=== PATIENT | female | born 1965 | race Caucasian/White ===

== ENCOUNTER → 2018-07-24 14:14 | Outpatient (CLI) | payer OTHER, SELFPAY ==
[2018-07-24 16:36] LABS: CPK Total, Creatine Kinase 104 U/L (26-192)
[2018-07-28 09:44] LABS: ANTINUCLEAR ANTIBODIES DIRECT Negative (Negative); Aldolase 3.3 U/L (3.3-10.3)
== END ==
PROVIDERS: Family Provider Family Medicine; PCP Family Medicine; Visit Provider Family Medicine
DX: M79.10 Myalgia, unspecified site (principal)
CPT/HCPCS: 36415; 82085; 82550; 86038; 86225; 86235

== ENCOUNTER → 2018-07-31 09:56 | Outpatient (CLI) | payer OTHER, SELFPAY ==
--- NOTE | 2018-07-31 10:02 | ART_ITS ---
Reason For Study: BLE pain/weakness Left Segmental Pressures Left brachial= 127mmHg. Left posterior tibial artery = 153mmHg. Left dorsalis pedis artery = 148mmHg. The left dorsalis pedis waveforms are triphasic. The left posterior tibial artery waveforms are triphasic. Right Segmental Pressures Right brachial= 126mmHg. Right posterior tibial artery = 158mmHg. Right dorsalis pedis artery = 146mmHg. The right dorsalis pedis waveforms are triphasic. The right posterior tibial artery waveforms are triphasic. Indices The right ankle brachial index by the dorsalis pedis is 1.2. The right ankle brachial index by the posterior tibial artery is 1.2. The left ankle brachial index by the dorsalis pedis is 1.2. The left ankle brachial index by the posterior tibial artery is 1.2. Interpretation Summary Triphasic waveforms are noted at ankle level bilaterally. Resting ankle-brachial indices appear bilaterally normal. There is no evidence of significant arterial occlusive disease. Ordering Physician: Kely Lynch Referring Physician: Kely Lynch Performed By: Montserrat Noriega [facility]
--- OUTSIDE RECORDS SUMMARY | 2018-09-16 00:23 | XMS RPT_ITS ---
:1965 Author Organization OHIP Support Name Relationship Address Phone SAMIRA BEATTYIN Unavailable [address] + [place] [address] SIERS, HENRIETTA Unavailable [address] + [place] [address] SIERS, HENRIETTA Unavailable [address] + [place] [address] SIERS, HENRIETTA Unavailable [address] + [place] [address] VENTURE Unavailable [address] + [place] [address] V[place] Unavailable [address] + [place] [address] SIERS, HENRIETTA Unavailable [address] + [place] [address] SIERS, HENRIETTA Unavailable [address] + [place] [address] SIERS, HENRIETTA Unavailable [address] + [place] [address] SIERS, HENRIETTA Unavailable [address] + [place] [address] SIERS, HENRIETTA Unavailable [address] + [place] [address] SIERS, HENRIETTA Unavailable [address] + [place] [address] SIERS, HENRIETTA Unavailable [address] + [place] [address] SIERS, HENRIETTA Unavailable [address] + [place] [address] SIERS, HENRIETTA Unavailable [address] + [place] [address] HENRIETTA BEATTY Unavailable [address] + [place] [address] Care Team Providers Name Role Phone DIRK BLOOM, MS. PALLAVI Wong Attending Unavailable DIRK ELE[employer] SUB[employer] TEACHER, MS. OLIVO S. Primary Care Unavailable MANOLO UMANZOR, DR. SADIA Salgado Attending Unavailable DIRK ELE[employer] SUB[employer] TEACHER, MS. OLIVO S. Primary Care Unavailable MANOLO UMANZOR, DR. SADIA Salgado Attending Unavailable DIRK ELEMENTARY SUBSTITUTE TEACHER, MSToshia OLIVO S. Primary Care Unavailable BENTLEYHEATH CAICEDO, DR. SERVANDO Angel Attending Unavailable BENTLEY DO, DR. SERVANDO Angel Referring Unavailable DIRK ELEMENTARY SUBSTITUTE TEACHER, MS. OLIVO S. Primary Care Unavailable MIEDEL, KELY Attending Unavailable DIRK ELEMENTARY SUB[employer] TEACHER, MS. OLIVO S. Primary Care Unavailable MIEDEL, KELY Attending Unavailable DIRK ELEMENTARY SUBSTITUTE TEACHER, MS. OLIVO S. Primary Care Unavailable CHUCK UMANZOR, DR. NOVOA Attending Unavailable DIRK ELE[employer] SUB[employer] TEACHER, MS. OLIVO S. Primary Care Unavailable Miedel, Kely Attending Unavailable Miedel, Kely Referring Unavailable Miedel, Kely Primary Care Unavailable Miedel, Kely Attending Unavailable Miedel, Kely Primary Care Unavailable PROBLEMS PROBLEMS DATE TYPE CONDITION / CODE ATTENDING STATUS SOURCE 07/24/2018 Unknown M79.10 - Myalgia, Miedel, Kely Active [place] unspecified site Community / M79.10(ICD-10) Hospital Repository PROCEDURES PROCEDURES No Procedure Records FoundRESULTS RESULTS MA MAMMOGRAM SCREENING Observed: 08/05/2018 Status: F Source: [facility] BILATERAL W/VISHNU 7:30 AM FOUNDATION REPOSITORY ORIGINAL FROM: [facility] [address] [address] PROCEDURE FOR: VITO BEATTY [address] [place] [address] Home: PID#: [id number] Exam#: [id number] : 1965 Age: 53 TO: VITO BEATTY [address] [place] [address] Patient is self-referred. #[id number] BILATERAL DIGITAL SCREENING MAMMOGRAM 3D/2D WITH CAD WITH MEDIOLATERAL OBLIQUE CRANIOCAUDAL: 08/05/2018 Comparison is made to exams dated: 02/04/2017 mammogram and 09/29/2015 mammogram - [facility]. The tissue of both breasts is heterogeneously dense. Current study was also evaluated with a Computer Aided Detection (CAD) system. There are post operative findings in the right axilla. No significant masses, calcifications, or other findings are seen in either breast. There has been no significant interval change. IMPRESSION: BENIGN There is no mammographic evidence of malignancy. A 1 year screening mammogram is recommended.(08/06/2019) CARMEN FELDER M.D. vfg/:08/06/2018 16:17:38 Plant Engineering Supervisor(s): RT DEE (R) (M) (CT), [facility] letter sent: Normal BI-RADS 1&2 Mammogram BI-RADS: 2 Benign ARTERIAL Observed: 08/02/2018 Status: F Source: [place] 9:56 AM [facility] REPOSITORY [facility] Cardiovascular Services [address] [place] [address] Ankle Brachial Index 07/31/18 1004 MR#: [id number] Acct: [id number] Name: VITO BEATTY Rep #: [id number] : 1965 53 From: Reynaldo Hammer MD Attending Dr: Kely Lynch MD Status: REG CLI Ordering Dr: Kely Lynch MD Date: 07/31/18 Location: [facility] Sex: F C Admitted: Reason For Study: BLE pain/weakness Left Segmental Pressures Left brachial= 127mmHg. Left posterior tibial artery = 153mmHg. Left dorsalis pedis artery = 148mmHg. The left dorsalis pedis waveforms are triphasic. The left posterior tibial artery waveforms are triphasic. Right Segmental Pressures Right brachial= 126mmHg. Right posterior tibial artery = 158mmHg. Right dorsalis pedis artery = 146mmHg. The right dorsalis pedis waveforms are triphasic. The right posterior tibial artery waveforms are triphasic. Indices The right ankle brachial index by the dorsalis pedis is 1.2. The right ankle brachial index by the posterior tibial artery is 1.2. The left ankle brachial index by the dorsalis pedis is 1.2. The left ankle brachial index by the posterior tibial artery is 1.2. Interpretation Summary Triphasic waveforms are noted at ankle level bilaterally. Resting ankle-brachial indices appear bilaterally normal. There is no evidence of significant arterial occlusive disease. Ordering Physician: Kely Lynch Referring Physician: Kely Lynch Performed By: Montserrat Noriega [facility] 08/02/18 0955 Date Reynaldo Hammer MD CC: Kely Lynch MD Date Dictated: 07/31/18 1004 Date Transcribed: 08/02/18954 Conference And Event Organiser: Signed CPK TOTAL, CREATINE Collected: 07/24/2018 Status: F Source: [place] KINASE 2:21 PM [facility] REPOSITORY TYPE CODE TESTS RESULT OUT OF RANGE REFERENCE UNITS LAB L501.3620 26-192 U/L Normal CPK TOTAL 104 Performed By: #### L501.3620 #### [facility] [place] [facility] [address] [place], [place], [address] ALDOLASE Collected: 07/24/2018 Status: F Source: [place] 2:21 PM [facility] REPOSITORY TYPE CODE TESTS RESULT OUT OF RANGE REFERENCE UNITS LAB L3100.7000 3.3-10.3 U/L Normal ALDOLASE 2030 3.3 Result Comment: Performed at: [address], [place], [place] [id number] Bullet Charging Machine Operator: Zeke Estes PhD, Phone: [phone] Performed By: #### L3100.7000 #### [facility] (refer to report for specific site) refer to report for address and phone number CAREY W/ REFLEX MULT Collected: 07/24/2018 Status: F Source: [place] DARIUS 2:21 PM [facility] REPOSITORY TYPE CODE TESTS RESULT OUT OF RANGE REFERENCE UNITS LAB L3100.5475 Negative Normal Negative CAREY-DIRECT Result Comment: Performed at: - [facility] [address] [id number] Bullet Charging Machine Operator: Zeke Estes PhD, Phone: [phone] Performed By: #### L3100.5450 #### [facility] (refer to report for specific site) refer to report for address and phone number CBC Collected: 05/04/2018 Status: F Source: [facility] 6:15 AM [facility] REPOSITORY TYPE CODE TESTS RESULT OUT OF REFERENCE UNITS RANGE LAB WBC(LOINC) 4.60-10.80 10 3/mcL Low WBC 4.50 LAB RBCCT(LOINC 4.20-5.40 10 6/mcL ) RBC 4.84 LAB HGB(LOINC) 12.0-16.0 G/dL Hgb 13.8 LAB HCT(LOINC) 37.0-47.0 % Hct 40.0 LAB MCV(LOINC) 80.0-94.0 fL MCV 82.6 LAB MCH(LOINC) 27.0-31.2 pg MCH 28.6 LAB MCHC(LOINC) 33.0-37.0 G/dL MCHC 34.6 LAB RDW(LOINC) 11.5-14.5 % RDW 12.8 LAB PLT(LOINC) 130-400 10 3/mcL Platelet 210 LAB MPV(LOINC) 7.4-10.4 fL MPV 9.0 Performed By: #### CBC, ADIFF, ANEU #### [address] [address] #### TSH, LIPID, CMP, GFR, VIDH #### [address] [address] .AUTO DIFF Collected: 05/04/2018 Status: F Source: [facility] 6:15 AM [facility] REPOSITORY TYPE CODE TESTS RESULT OUT OF REFERENCE UNITS RANGE LAB SARAH(LOINC) 37.0-80.0 % Neutrophil % 47.5 LAB LYM(LOINC) 10.0-50.0 % Lymphocyte % 40.5 LAB MON(LOINC) 1.7-13.0 % Monocyte % 8.5 LAB EO(LOINC) 0.0-7.0 % Eosinophil % 2.6 LAB BAS(LOINC) 0.0-2.5 % Basophil % 0.9 LAB ABLYM(LOIN 0.77-3.85 10 3/mcL C) Lymphocyte, 1.80 Absolute LAB JOSHUA(LOINC 0.15-1.00 10 3/mcL ) Monocyte, 0.40 Absolute LAB AEOS(LOINC 0.00-0.40 10 3/mcL ) Eosinophil, 0.10 Absolute LAB ABAS(LOINC 0.00-0.19 10 3/mcL ) Basophil, 0.00 Absolute Performed By: #### CBC, ADIFF, ANEU #### [address] [address] #### TSH, LIPID, CMP, GFR, VIDH #### [place] [address] .NEUABS Collected: 05/04/2018 Status: F Source: [facility] 6:15 AM [facility] REPOSITORY TYPE CODE TESTS RESULT OUT OF REFERENCE UNITS RANGE LAB ANEU(LOINC) 2.85-6.16 10 3/mcL Low Neutrophil, 2.10 Absolute Performed By: #### CBC, ADIFF, ANEU #### [address] [address] #### TSH, LIPID, CMP, GFR, VIDH #### [place] [address] TSH Collected: 05/04/2018 Status: F Source: [facility] 6:15 AM [facility] REPOSITORY TYPE CODE TESTS RESULT OUT OF RANGE REFERENCE UNITS LAB TSH(LOINC) 0.36-3.74 mcIU/mL TSH 1.73 Performed By: #### CBC, ADIFF, ANEU #### [address] [address] #### TSH, LIPID, CMP, GFR, VIDH #### [place] [address] LIPID Collected: 05/04/2018 Status: F Source: [facility] 6:15 AM [facility] REPOSITORY TYPE CODE TESTS RESULT OUT OF REFERENCE UNITS RANGE LAB CHOL(LOINC 0-200 mg/dL ) Cholesterol 189 Result Comment: Cholesterol Reference Interval: Less than 200 Desirable 200-239 Borderline high risk 240 and above High risk LAB TRIG(LOINC) 0-150 mg/dL Triglycerides 47 Result Comment: Triglyceride Reference Interval: Less than 150 Normal 150-199 Borderline high risk 200-499 High risk 500 or higher Very high risk LAB HD(LOINC) 40-60 mg/dL HDL High Cholesterol 63 LAB LDL(LOINC) 0-130 mg/dL LDL Cholesterol 117 Performed By: #### CBC, ADIFF, ANEU #### [address] [address] #### TSH, LIPID, CMP, GFR, VIDH #### [address] [address] CMP Collected: 05/04/2018 Status: F Source: [facility] 6:15 AM [facility] REPOSITORY TYPE CODE TESTS RESULT OUT OF REFERENCE UNITS RANGE LAB GLU(LOINC) 70-105 mg/dL Glucose Level 92 LAB NA(LOINC) 136-145 mmol/L Sodium Level 144 LAB K(LOINC) 3.5-5.1 mmol/L Potassium Level 3.9 LAB CL(LOINC) 98-107 mmol/L Chloride 106 LAB CO2(LOINC) 22-29 mmol/L CO2 28 LAB EBAL(LOINC mEq/L ) Electrolyte Balance 10.0 LAB BUN(LOINC) 7-18 mg/dL BUN 14 LAB CRE(LOINC) 0.55-1.02 mg/dL Creatinine Lvl (s) 0.77 LAB BC(LOINC) 7-27 ratio BUN/Creatinine 18 Ratio LAB CA(LOINC) 8.4-10.2 mg/dL Calcium Lvl 9.1 LAB PROT(LOINC 6.4-8.2 G/dL ) Total Protein 7.0 LAB ALB(LOINC) 3.5-5.0 G/dL Albumin Level 3.9 LAB GLB(LOINC) G/dL Globulin 3.1 LAB AG(LOINC) 1.1-2.5 ratio A/G Ratio 1.3 LAB BILT(LOINC 0.2-1.0 mg/dL ) Bili Total 0.5 LAB AP(LOINC) 40-135 U/L Alk Phos 100 LAB AST(LOINC) 10-40 U/L AST/SGOT 22 LAB ALT(LOINC) 10-35 U/L ALT/SGPT 29 Performed By: #### CBC, ADIFF, ANEU #### [facility] [address] [place], [place] [address] #### TSH, LIPID, CMP, GFR, VIDH #### [address] [address] .GFR Collected: 05/04/2018 Status: F Source: [facility] 6:15 AM FOUNDATION REPOSITORY TYPE CODE TESTS RESULT OUT OF REFERENCE UNITS RANGE LAB GFRAA(LOINC ml/min/1.73 ) sqm GFR 96 [place]an Result Comment: GFR Population mean for , Non- Americans Ages 20-29 = 116 mL/min/1.73 sq.m. Ages 30-39 = 107 mL/min/1.73 sq.m. Ages 40-49 = 99 mL/min/1.73 sq.m. Ages 50-59 = 93 mL/min/1.73 sq.m. Ages 60-69 = 85 mL/min/1.73 sq.m. Ages 70+ = 75 mL/min/1.73 sq.m. Chronic Kidney Disease: Less than 60 mL/min/1.73 square meters End Stage Renal Disease: Less than 15 mL/min/1.73 square meters LAB GFRNO(LOINC) ml/min/1.73sqm GFR Non- 79 Result Comment: GFR Population mean for , Non- Americans Ages 20-29 = 116 mL/min/1.73 sq.m. Ages 30-39 = 107 mL/min/1.73 sq.m. Ages 40-49 = 99 mL/min/1.73 sq.m. Ages 50-59 = 93 mL/min/1.73 sq.m. Ages 60-69 = 85 mL/min/1.73 sq.m. Ages 70+ = 75 mL/min/1.73 sq.m. Chronic Kidney Disease: Less than 60 mL/min/1.73 square meters End Stage Renal Disease: Less than 15 mL/min/1.73 square meters Performed By: #### CBC, ADIFF, ANEU #### [place] [address] [place], [place] [address] #### TSH, LIPID, CMP, GFR, VIDH #### [place] [address] VIDH Collected: 05/04/2018 Status: F Source: [facility] 6:15 AM [facility] REPOSITORY TYPE CODE TESTS RESULT OUT OF RANGE REFERENCE UNITS LAB VIDH(LOINC) ng/mL Vit. D 27 25-Hydroxy Result Comment: Interpretive Values Based on Total 25(OH)D: Severe Deficiency <20 ng/mL Mild to Moderate Deficiency 20-30 ng/mL Optimum Levels 30-100 ng/mL Toxicity Possible >100 ng/mL Performed By: #### CBC, ADIFF, ANEU #### [address] [address] #### TSH, LIPID, CMP, GFR, VIDH #### [place] [address] FINAL SURGICAL Observed: 01/01/2018 Status: F Source: [facility] PATHOLOGY REPORT 12:52 PM [facility] REPOSITORY . Pathology Reports Accession: Collected Date/Time: Received Date/Time: Pathologist: [id number] 01/01/2018 12:52 EDT 01/02/2018 07:26 EDT DO BERTHA MALONEY Final Surgical Pathology Report DIAGNOSIS: LOBULATED ADIPOSE TISSUE CONSISTENT WITH LIPOMA, CLINICALLY FROM ABDOMINAL WALL. COMMENT: [facility]# [id number] CLINICAL INFORMATION: Procedure: excision abdominal wall lipoma Preoperative diagnosis: epigastric hernia Postoperative diagnosis: abdominal wall lipoma SPECIMEN: A LIPOMA GROSS DESCRIPTION: Received in formalin labeled lipoma is a 4 x 3 x 1.5 cm aggregate of yellow-red lobular adipose tissue. The external and cut surfaces appear grossly unremarkable. RS -1 Dictated by JB ESCALONA ([facility]) MICROSCOPIC DESCRIPTION: Slides reviewed. Electronically Signed by Pathology Report verified by [facility] Electronically signed by BERTHA MALONEY DO Sign out Date: 01/05/2018 11:02 Performing Lab: [address] Performed By: #### SPFR #### [place] [address] CBC Collected: 12/29/2017 Status: F Source: [facility] 8:27 AM [facility] REPOSITORY TYPE CODE TESTS RESULT OUT OF REFERENCE UNITS RANGE LAB WBC(LOINC) 4.60-10.80 10 3/mcL WBC 4.60 LAB RBCCT(LOINC 4.20-5.40 10 6/mcL ) RBC 5.06 LAB HGB(LOINC) 12.0-16.0 G/dL Hgb 14.0 LAB HCT(LOINC) 37.0-47.0 % Hct 41.3 LAB MCV(LOINC) 80.0-94.0 fL MCV 81.7 LAB MCH(LOINC) 27.0-31.2 pg MCH 27.6 LAB MCHC(LOINC) 33.0-37.0 G/dL MCHC 33.9 LAB RDW(LOINC) 11.5-14.5 % RDW 12.8 LAB PLT(LOINC) 130-400 10 3/mcL Platelet 233 LAB MPV(LOINC) 7.4-10.4 fL MPV 8.8 Performed By: #### CBC, ADIFF, ANEU #### [place] [address] [address] .AUTO DIFF Collected: 12/29/2017 Status: F Source: [facility] 8:27 AM [facility] REPOSITORY TYPE CODE TESTS RESULT OUT OF REFERENCE UNITS RANGE LAB SARAH(LOINC) 37.0-80.0 % Neutrophil % 51.7 LAB LYM(LOINC) 10.0-50.0 % Lymphocyte % 36.1 LAB MON(LOINC) 1.7-13.0 % Monocyte % 8.5 LAB EO(LOINC) 0.0-7.0 % Eosinophil % 2.6 LAB BAS(LOINC) 0.0-2.5 % Basophil % 1.1 LAB ABLYM(LOIN 0.77-3.85 10 3/mcL C) Lymphocyte, 1.70 Absolute LAB JOSHUA(LOINC 0.15-1.00 10 3/mcL ) Monocyte, 0.40 Absolute LAB AEOS(LOINC 0.00-0.40 10 3/mcL ) Eosinophil, 0.10 Absolute LAB ABAS(LOINC 0.00-0.19 10 3/mcL ) Basophil, 0.10 Absolute Performed By: #### CBC, ADIFF, ANEU #### [address] [address] [place], [place] [address] .NEUABS Collected: 12/29/2017 Status: F Source: [place] 8:27 AM [facility] REPOSITORY TYPE CODE TESTS RESULT OUT OF REFERENCE UNITS RANGE LAB ANEU(LOINC) 2.85-6.16 10 3/mcL Low Neutrophil, 2.40 Absolute Performed By: #### FLORENCIA TENORIO MITA #### [place] [address] [place], [place] [address] CT ABDOMEN W/ Observed: 12/10/2017 Status: F Source: [place] CONTRAST 8:00 AM [facility] REPOSITORY ORIGINAL CT abdomen with oral and IV contrast, 12/10/2017. CLINICAL INFORMATION: Abdominal swelling. COMPARISON: Ultrasound abdomen 07/04/2017 This exam was performed according to our departmental dose optimization program, and includes the following measures where applicable: automated exposure control, adjustment of the mAs and/or kVp accord ing to patient size and/or exam, and an iterative reconstruction algorithm. Heart size normal without basilar pericardial fluid. Caudal lungs are felt to be normal. There is no significant abnormality of liver, gallbladder or bile ducts, portal vein, spleen, pancreas, adrenal glands or kidneys. IVC, abdominal aorta and visualized common iliac arteries are normal ca liber. No retroperitoneal adenopathy. Oral contrast opacifies stomach and nondistended small bowel and proximal colon. Appendix is felt to be normal. There is no mesenteric mass or intraperitoneal air or fluid. No acute bone abnormality. IMPRESSION: Normal exam. Interpreted By: Grady Stanton MD Preliminary Report By: Grady Stanton MD Electronically Signed By: Grady Stanton MD Dictated Date: 12/10/2017 9:06:33 AM Prelim Date: 12/10/2017 9:06:33 AM Sign Date: 12/10/2017 9:09:06 AM ALLERGIES ALLERGIES No Allergies Records FoundENCOUNTERS ENCOUNTERS ADMIT/DISCHARGE ACCOUNT NUMBER ADMITTING ENCOUNTER LOCATION SOURCE CLASS 09/08/2018 [id number] Ambulatory BBuilding:DONNA Mattson [facility] Repository 08/05/2018/08/05/20 [id number] Ambulatory BBuilding: [place] [address] [employer] [facility] Repository 07/31/2018 [id number] Ambulatory [facility] ding:[facility] Repository 07/24/2018 [id number] Ambulatory [place] [facility] ding:[facility] Repository 05/04/2018/05/04/20 [id number] Ambulatory [address] ding:OLAB [facility] Repository 04/15/2018/06/10/20 [id number] Ambulatory BBuilding:PH [facility] Repository 01/01/2018/01/02/20 [id number] Ambulatory BBuilding:OS [place] [address] [facility]: Health 0001Bed: G [facility] Repository 12/29/2017/12/30/19 [id number] Ambulatory [address] ding:OPRS [facility] Repository 12/10/2017/12/11/19 [id number] Ambulatory [address] ding:RAD [facility] Repository PAYERS PAYERS ENCOUNTER GUARANTOR PAYER SUBSCRIBER SOURCE 09/08/2018 VITO S SIERSDOB: Primary VITO S SIERSDOB: FIA [employer] [id number] Insurance:MEDICAL [id number] [place] [address] Number: [place] [id number]: [phone]) [id number] [id number]: Date:2018-08-17 ()Tel: [phone] () () Name:[facility] JONATHAN [phone] () [address] [place] [address]YH: 08/05/2018 VITO S SIERSDOB: Primary VITO S SIERSDOB: [place] [employer] [id number] Insurance:MEDICAL [id number] [place] [address] Number: [place] [id number]: [phone] [id number]: Date:2018-07-29 (HP)Tel: [phone] (HP) (WP) Name:[facility] JONATHAN [phone] () [address] [place] [address]OY: 07/31/2018 VITO S Primary VITO S SIERSDOB: [place] [id number] Insurance:MEDICAL [id number] Number: Repository [id number]: [phone] [id number] [phone] (HP) Date:[id number] [address] [address]CP: 07/31/2018 Secondary NOT GIVENUNK Janay Insurance:SELF PAY [facility] Number: Effective Repository Date:2018-07-29 07/24/2018 VITO S Primary VITO S SIERSDOB: [place] [id number] Insurance:MEDICAL [id number] Number: Repository [id number]: [phone] [id number] [phone] (HP) Date:1696-00-86SP [address] [address]FB: 07/24/2018 Secondary NOT GIVENUNK Janay Insurance:SELF PAY [facility] Number: Effective Repository Date:2018-07-24 05/04/2018 VITO S SIERSDOB: Primary VITO S SIERSDOB: [facility] [id number] Insurance:MEDICAL [id number] Number: [place], [place] [address]Bon: [phone] [id number]: Date:2018-05-04 (HP)Tel: [phone] (HP) (WP) Name:[facility] JONATHAN [phone] () [address] [place] [address]CT: 04/15/2018 VITO S SIERSDOB: Primary VITO S SIERSDOB: [facility] Insurance:MEDICAL [id number] [place] [address] Number: [place] [id number]: ([phone]) [id number] [id number]: Date:2018-04-06 (HP)Tel: [phone] (HP) (WP) Name:Rashmi CASTILLO [phone] (WP) [address] [place] [address]QB: 01/01/2018 VITO S SIERSDOB: Primary VITO S SIERSDOB: [facility] [id number] Insurance:MEDICAL [id number] [place] [address] Number: [place] [id number]: ([phone]) [id number] [id number]: Date:2017-12-22 (HP)Tel: [phone] (HP) (WP) Name:REINA CASTILLO [phone] (WP) [address] [place] [address]LG: 12/29/2017 VITO S SIERSDOB: Primary VITO S SIERSDOB: [facility] [id number] Insurance:MEDICAL [id number] [place] [address] Number: [place] [id number]: ([phone]) [id number] [id number]: Date:2017-12-22 (HP)Tel: [phone] (HP) (WP) Name:[address] [phone] (WP) [address] [place] [address]LE: 12/10/2017 VITO BEATTYDOB: Primary VITO BEATTYDOB: [facility] [id number] Insurance:MEDICAL [id number] [facility] 6018Policy [address] [facility] Repository [place], [place] Number: [place], [place] [address]Tot: [phone]) [id number]: Date:2017-12-08678 (HP)Tel: [phone] () (WP) Name:BPRashmi CASTILLO 000-0000 (WP) [address] [place] [address]MB:
== END ==
PROVIDERS: Family Provider Family Medicine; PCP Family Medicine; Referring Provider Family Medicine; Visit Provider Family Medicine
DX: I73.9 Peripheral vascular disease, unspecified (principal); M79.10 Myalgia, unspecified site
CPT/HCPCS: 93922

== ENCOUNTER → 2018-12-15 06:33 | Outpatient (CLI) | payer OTHER, SELFPAY ==
--- NOTE | 2018-12-15 06:50 | MRI_ITS ---
STUDY: MRI BRAIN WITH AND WITHOUT CONTRAST REASON FOR EXAM: Female, 53 years old. Right facial tic and numbness TECHNIQUE: Standardized multiplanar fat and water weighted pulse sequences were obtained. 18 IV Dotarem was administered for the contrast portion of the examination. COMPARISON: None. FINDINGS: Normal size of the ventricles and extra-axial spaces for the patient's age. There are minimal small white matter hyperintensities, distributed throughout the deep white matter tracts of the cerebral hemispheres, consistent with minimal chronic white matter ischemic changes. Normal bilateral basal ganglia. Normal thalami. There is no extra-axial fluid accumulation. Normal flow voids within the major intracranial circulation suggesting patency by spin echo criteria. Normal venous enhancement. There is no enhancing intra-axial or extra-axial abnormality. Normal sella turcica, pituitary gland, infundibular stalk, optic chiasm and hypothalamus. Normal tectal plate and pineal gland. Normal midbrain, blaire and medulla. Normal cerebellum. Normal basal cisterns. Normal bilateral temporal bones. Normal bilateral internal auditory canals. No demonstrated orbital abnormality, within the constraints of a routine brain study. There is moderate left maxillary sinus chronic mucosal thickening. There is a small right maxillary sinus retention cyst and mild axillary chronic mucosal thickening. Remaining paranasal sinuses are clear.. Normal calvarium and skull base. Normal visualized soft tissue structures. Normal visualized upper cervical spine. MRI/Brain W/WO Contrast IMPRESSION: No acute intracranial abnormality. No enhancing abnormality. Mild to moderate chronic sinus disease. Electronically Signed: Tara Dawson, at 9:35 EDT Tel , Service support ,
== END ==
LOC: MRI 06:35
PROVIDERS: Family Provider Family Medicine; PCP Family Medicine; Referring Provider Family Medicine; Visit Provider Family Medicine
DX: R20.8 Other disturbances of skin sensation (principal); F95.9 Tic disorder, unspecified
CPT/HCPCS: 70553; A9575

== ENCOUNTER → 2019-07-07 13:45 | Outpatient (CLI) | payer OTHER, SELFPAY ==
--- NOTE | 2019-07-07 13:53 | ECHOD_ITS ---
Reason For Study: heart failure Procedure This was a 2D Doppler, Color Flow transthoracic echocardiogram. Exam performed in department. Left Ventricle Normal size and thickness. The estimated ejection fraction is 65 %. Stage 1 diastolic dysfunction. No regional wall motion abnormalities noted. Right Ventricle Normal size and thickness. A moderator band is seen in the right ventricle. Normal systolic function. Atria Normal left atrium. Normal right atrium. Normal atrial septum. Probable patent foramen ovale. Right to left crossover with bubble study. Mitral Valve The mitral valve is structurally normal. No prolapse or stenosis seen. Tricuspid Valve Normal tricuspid valve. Trivial tricuspid valve insufficiency. Right ventricular systolic pressure estimated to be 32 mmHg. Aortic Valve Trisinus/trileaflet aortic valve. Pulmonic Valve Normal pulmonic valve. Great Vessels Normal aortic root. Normal arch. Normal inferior vena cava. Inferior vena cava collapse with sniff. Pericardium/Pleural No pericardial effusion. Medication 22 gauge I.V. with prn adaptor inserted into right arm. Performed a rapid injection of agitated mix of 9 cc saline and 1cc air to assess for atrial septal defect. MMode/2D Measurements & Calculations LVIDd: 4.6 cm IVSd: 0.84 cm Ao root diam: 3.0 cm LVIDs: 2.9 cm LVPWd: 0.86 cm RVDd: 3.2 cm FS: 36.1 % LAV(MOD-bp): 56.6 ml LA A4 area: 18.4 cm2 LA dimension(2D): 3.5 cm LAV(MOD-bp) Indexed: 28.6 ml/m2 LAV(MOD-sp2): 51.3 ml LAV(MOD-sp4): 58.5 ml RA A4 area: 12.2 cm2 Time Measurements MV dec time: 0.18 sec Doppler Measurements & Calculations MV E max mika: 76.6 cm/sec Lat Peak E' Mika: 11.5 cm/sec Med Peak E' Mika: 6.8 cm/sec MV A max mika: 88.5 cm/sec E/E' lat: 6.7 E/E' med: 11.3 MV E/A: 0.87 Ao V2 max: 150.8 cm/sec LV V1 max: 130.5 cm/sec PA V2 max: 117.9 cm/sec Ao max P.1 mmHg LV V1 max P.8 mmHg TR max mkia: 248.9 cm/sec TR max P.9 mmHg Interpretation Summary The estimated ejection fraction is 65 %. Stage 1 diastolic dysfunction. Probable patent foramen ovale. Right to left crossover with bubble study. Trivial tricuspid valve insufficiency. Right ventricular systolic pressure estimated to be 32 mmHg. There is no comparison study available. Ordering Physician: Grady Jean-Baptiste Referring Physician: Kely Lynch Performed By: Sara Garcia RDCS, RVT
== END ==
PROVIDERS: Family Provider Family Medicine; PCP Family Medicine; Referring Provider Psychiatry & Neurology Neurology; Visit Provider Psychiatry & Neurology Neurology
DX: I50.9 Heart failure, unspecified (principal)
CPT/HCPCS: 93306; A4216

== ENCOUNTER → 2019-07-28 10:42 | Outpatient (CLI) | payer OTHER, SELFPAY ==
[2019-07-28 09:37] VITALS: BMI 33.3
[2019-07-28 11:36] LABS: Thyroid Stim Hormone (TSH) 1.04 uIU/mL (0.358-3.74)
== END ==
PROVIDERS: Family Provider Family Medicine; PCP Family Medicine; Referring Provider Internal Medicine Cardiovascular Disease; Visit Provider Internal Medicine Cardiovascular Disease
DX: R00.2 Palpitations (principal)
CPT/HCPCS: 36415; 84443; 93225; 93226

== ENCOUNTER → 2019-11-02 | Outpatient (CLI) | payer OTHER, SELFPAY ==
[2019-07-28 09:37] VITALS: BMI 33.3
[2019-11-02 15:15] LABS: Absolute Lymphocyte Count 1.77 X10^3/uL (0.83-4.51); Absolute Neutrophil Count 2.5 X10^3/uL (2.0-7.7); Basophil# 0.03 X10^3/uL; Basophil% 0.6 % (0-1); Eosinophil# 0.18 X10^3/uL; Eosinophils% 3.7 % (0-5); Hematocrit 41.3 % (37-47); Hemoglobin 13.1 g/dL (12.0-15.0); Lymphocyte # 1.77 X10^3/ul (4.0); Lymphocyte % 36.3 % (19-41); Mean Corp Hgb Conc 31.7 g/dL (32-36); Mean Corpuscular Hgb 27.2 pg (27.0-32.0); Mean Corpuscular Volume 85.7 fL (81-99); Mean Platelet Vol. 11.3 fl (6.2-12.0); Monocyte# 0.38 X10^3/uL; Monocyte% 7.8 % (0-10); NRBC Flagged by Analyzer 0 % (0-5); Neutrophil # 2.51 X10^3/uL (2.7-7.7); Neutrophil % 51.4 % (47-70); Platelet Count 204 K/mm3 (150-450); RBC Distribution Width CV 13.2 % (11.6-14.6); Red Blood Count 4.82 M/mm3 (4.2-5.4); White Blood Count 4.9 K/mm3 (4.4-11.0)
[2019-11-02 15:52] LABS: Anion Gap 3 (5-15); BUN 21 mg/dL (7-18); BUN/Creat Ratio 27.9 RATIO (10-20); Calcium,Total 8.9 mg/dL (8.5-10.1); Chloride 105 mmol/L (98-107); Creatinine, Serum 0.75 mg/dL (0.55-1.02); EST Glomerular Filtration Rate 86 mL/min (>60); Est Glom Filt Rate - Afr Amer 104 mL/min (>60); Glucose 100 mg/dL (74-106); Potassium 3.7 mmol/L (3.5-5.1); Sodium Level 138 mmol/L (136-145)
== END | disposition home or self-care (01) ==
LOC: BFHLAB 11:22
PROVIDERS: PCP Family Medicine; Visit Provider Family Medicine
DX: Z01.818 Encounter for other preprocedural examination (principal)
CPT/HCPCS: 36415; 80048; 85025

== ENCOUNTER 2019-12-31 06:04 | Day surgery (SDC) | payer OTHER, SELFPAY ==
[2019-07-28 09:37] VITALS: BMI 33.3
[2019-12-31 06:26] VITALS: BP 117/65; PULSE 75; RESP 18; TEMP 36.5; O2SAT 100; BMI 34.0
--- NOTE | 2019-12-31 07:00 | RAD_ITS ---
STUDY: X-RAY - RIGHT FOOT CLINICAL: Female, 54 years old. RT PLANTAR FASCIOTOMY W/ RESECTION. 16 SEC. FL. ONLY ONE IMAGE SAVED TECHNIQUE: Single intraoperative view(s) of the foot. COMPARISON: None. FINDINGS: Intraoperative imaging is provided for plantar fasciotomy and resection of the plantar spur. RAD/Foot 2 Views IMPRESSION: Intraoperative imaging provided for resection of a plantar spur and plantar fasciotomy. Electronically Signed: Eldon Benson, at 10:33 EDT , Service support ,
--- NOTE | 2019-12-31 07:27 | OP.PCM_ITS ---
Report of Operation Date of Procedure: 12/31/19 Pre-Operative Diagnosis: Plantar fasciitis w/ infracalcaneal spur, right foot. Tarsal tunnel syndrome, right foot Post-Operative Diagnosis: Same Surgery/Procedure Performed:: Plantar fasciotomy with resection of infracalcan eal spur, right. 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 She has pain to the tarsal tunnel with numbness and shooting to the bottom of the foot. She also has significant plantar fascia symptoms. Symptoms started about 2 years ago. Pre operative MRI showed infracalcaneal spur w/ plantar fasciitis, and clinically there was symptoms of tarsal tunnel syndrome with positive tinel's sign to the tibial nerve. This persists despite rest, activity modifications, immobilization, anti- inflammatories, changes in shoegear, and corticosteroid injections. She continues to have significant pain and symptoms. Therefore further options were discussed with her. She elected to proceed forward with surgical intervention tarsal tunnel release decompression, along with plantar fasciotomy and resection of infracalcaneal spur. This was discussed with her in great detail, reviewed the procedures with her in detail, reviewed the rationale, possible benefits, risks/potential complications, goals, expectations, estimated healing time all in great detail. Patient expressed understanding, and elected to proceed forward with the procedures. The consent forms were reviewed with her, and this was freely signed. All of her questions were answered. No guarantees were given nor implied. Operative Procedure: The patient was brought back into the operating room and was placed on the operating room in the supine position. She was carefully secured to the operating room table in the supine position. The patient received 2 grams of IV Cefazolin for antibiotic prophylaxis. The patient received MAC anesthesia per the anesthesia team. Then a total of 10mL of 0.5% Bupivicaine was given as a local block to the tarsal tunnel and medial hindfoot after the overlying skin was cleansed with 70% isopropyl alcohol. A well padded pneumatic tourniquet was applied around the patient's right low calf. The patient's right lower extremity was scrubbed, prepped, draped in the usual aseptic fashion. A timeout was performed and the patient was properly identified and the surgical plan was confirmed. The patient's right foot/ankle was exsanguinated using an Esmarch bandage and was elevated; the pneumatic tourniquet was inflated to 25 0mmHg. Attention was directed to the plantar fascia and plantar calcaneus. A skin incision was made to the medial hindfoot at the level of the origin of the plantar fascia on the inferior calcaneus. Careful dissection was completed down through the subcutaneous tissue layer. A plane was created superiorly and inferiorly around the plantar fascia. There was significant thickening and fibrosis of the plantar fascia consistent with plantar fasciitis. The medial 50% of the plantar fascia was released via a plantar fasciotomy. There was noted infracalcaneal spur, which was resected using a powered sagittal saw. Proper resection was confirmed using intraoperative fluoroscopy. The site was flushed out with copious amounts of normal saline solution. Attention was directed to the tarsal tunnel. Using a #15 scalpel blade a curvilinear incision was made overlying the tarsal tunnel. Careful dissection was completed down to the flexor retinaculum, which was identified and was released, exposing the tarsal tunnel. Careful dissection was completed down to the tibial nerve. The tibial nerve was visualized, along with its branches of the medial and lateral plantar nerves and medial calcaneal nerve, in which it was noted these branches occurred at the central to distal aspect of the tarsal tunnel. It was noted there were significant adhesions around the tibial nerve as well as to the aforementioned branches at the level of the tarsal tunnel, these were identified and carefully released. The tibial nerve appeared enlarged, yellow and degenerative, as well as appeared to be quite inflamed at this level. The posterior artery and vein were coursing over the top of the tibial nerve. This was freed up, being sure not to injure the nerve, artery, or vein. The tarsal tunnel was decompressed. The surgical site was flushed out with copious amounts of normal saline solution. The rest of the tissues at the surgical site appeared healthy and viable. The flexor retinaculum was not reapproximated together to help prevent further impingement/entrapment of the tibial nerve and associated branches. The pneumatic tourniquet was deflated (total time tourniquet was inflated was 38 minutes), there was immediate return of warmth and perfusion to the lower extremity. Temperature was noted, with CFT < 2 seconds to all toes. The posterior tibial artery and veins were intact. Hemostasis was achieved prior to closure. The subcutaneous tissue and skin were reapproximated using 3-0 Vicryl and 4-0 Monocryl. An additional 20mL of local nerve block was completed around the surgical sites for post operative pain control using 0.5% Bupivacaine plain to aid with post operative pain control.The skin incision edges were painted with Cavilon, and Steri-strips were applied across the sutured skin incision site of the tarsal tunnel. A dressing was applied which consisted of Betadine soaked Adaptic, 4x4 gauze, Kerlix and radhames bandage. The patient tolerated the above operative procedures well, and the anesthesia well with no complications. Post operative orders were placed. Post operative instructions were reviewed with patient as well as with her family () who was here with her today. Patient to remain nonweightbearing to the right foot/ankle at all times, keep the right foot elevated at least 50 minutes of every hour, keep dressing clean, dry and intact. A prescription for Percocet 5 mg/3250mg tabs; 1-2 tabs PO q 6 hours PRN pain, as well as Ibuprofen 600mg PO q 6 hours was given for post operative pain control. The patient to follow up with me in 1 week, sooner if needed. Grafts/Implants Used: None - Complications None - Admit VTE Documentation VTE Mechan Device Prophylaxis: SCD's
--- NOTE | 2019-12-31 07:28 | PCM.DC.POD ---
Discharge Diet: Light diet - advance as tolerated Discharge Activity: May Not Drive, Use Walker Weight Bearing Status: No weight bearing - No weightbearing on right foot Keep extremity elevated above heart level: Right Leg - Keep right foot elevated for at least 50 minutes of every hour Call your doctor if your incision/area has: Continuous Slow Oozing, Sudden Increased Bleeding, Foul Smelling Discharge Call your doctor if you observe: Fever of 101 or Higher, Shortness of breath, Chest pain, Calf discomfort, Uncontrolled pain Cleanse incision/area with: Do not get Incision Wet, Keep Dressing Clean & Dry Allergies/Adverse Reactions: Allergies No Known Allergies Allergy (Unverified 12/31/19 06:22) Medications to take at Discharge omeprazole 20 mg capsule,delayed release 20 mg PO DAILY 07/27/19 Aspirin [Aspir 81] 81 mg PO DAILY 12/29/19 Ibuprofen 600 mg PO Q6H PRN PRN #40 tab 12/31/19 Oxycodone HCl/Acetaminophen [Percocet 5/325] 1 - 2 tab PO Q6H PRN PRN 3 Days #30 tab 12/31/19 The following prescriptions were given: Ibuprofen 600 mg PO Q6H PRN PRN #40 tab PRN Reason: Pain Score 1-10/10 Transmission Status: Received by [facility] #[id number] Oxycodone HCl/Acetaminophen [Percocet 5/325] 1 - 2 tab PO Q6H PRN PRN 3 Days #30 tab PRN Reason: Pain Transmission Status: Received by [id number] Primary Care Physician: Kely Lynch MD [Primary Care Provider] - Test Results: Test results from this visit will be discussed in further detail at your follow-up appointment, if applicable. Please Follow Up With: Elfego Hylton DPM When: 1 week, sooner if needed
[2019-12-31] MEDS: Cefazolin 2 GM in 0.9% Normal Saline 100 ML IV (07:29)
[2019-12-31] MEDS: Bupivacaine Mpf 0.5% 30 ML VIAL (07:42)
[2019-12-31 09:02] VITALS: BP 117/65; BP 119/75; PULSE 74; RESP 16; TEMP 36.7; O2SAT 96
[2019-12-31 09:15] VITALS: BP 117/65; BP 126/84; PULSE 88; RESP 16; O2SAT 96
--- NOTE | 2019-12-31 09:15 | RAD_ITS ---
STUDY: X-RAY - RIGHT FOOT CLINICAL: Female, 54 years old. POST OP PLANTAR FASCIOTOMY WITH RESECTION OF INFRACALCANEAL SPUR/ TARSAL TUNNEL DECOMPRESSION TECHNIQUE: 3 view(s) of the foot. COMPARISON: None. FINDINGS: The patient is status post plantar fasciotomy with resection of the plantar spur. Normal visualized subtalar, talonavicular, calcaneocuboid, tarsal and tarsometatarsal articulations. Normal metatarsi. Normal metatarsophalangeal joint of the great toe. Normal tibial and fibular sesamoid bones. Normal interphalangeal joint of the great toe. Normal phalanges of the great toe. Normal second through fifth metatarsophalangeal joints. Normal interphalangeal joints and phalanges of the lesser toes. Postoperative soft tissue changes. RAD/Foot min 3 Views IMPRESSION: Postoperative soft tissue changes. Electronically Signed: Eldon Benson, at 10:23 EDT , Service support ,
[2019-12-31 09:30] VITALS: BP 116/77; BP 117/65; PULSE 89; RESP 16; O2SAT 86
[2019-12-31 09:45] VITALS: BP 117/65; BP 128/78; PULSE 88; RESP 16; TEMP 36.3; O2SAT 96
[2019-12-31 10:21] VITALS: BP 117/65; BP 123/68; PULSE 75; RESP 16; TEMP 36.7; O2SAT 99
== END 2019-12-31 10:28 | disposition home or self-care (01) ==
LOC: SDC 06:05 → AC 06:06
PROVIDERS: PCP Family Medicine; Referring Provider Podiatrist; Visit Provider Podiatrist
PROC: (CPT 28119; principal; 2019-12-31 07:15)
DX: M72.2 Plantar fascial fibromatosis (principal); G57.51 Tarsal tunnel syndrome, right lower limb; G89.29 Other chronic pain; Q21.1 Atrial septal defect; K21.9 Gastro-esophageal reflux disease without esophagitis; E66.9 Obesity, unspecified; Z68.34 Body mass index [BMI] 34.0-34.9, adult; Z78.0 Asymptomatic menopausal state; Z79.82 Long term (current) use of aspirin; Z79.1 Long term (current) use of non-steroidal anti-inflammatories (NSAID); Z79.899 Other long term (current) drug therapy; Z11.59 Encounter for screening for other viral diseases
CPT/HCPCS: 01480; 28035; 28119; 73620; 73630; 76000; 87635; G2023; J7120; J2405; U0002

== ENCOUNTER 2020-03-29 07:30 | Outpatient (RCR) | payer OTHER, SELFPAY ==
--- NOTE | 2020-02-25 09:18 | HP.PTEVAL ---
Patient's Visit Information VITO BEATTY is a 54 year old F referred to Physical Therapy by Dr. Elfego Hylton DPM with a diagnosis of S/P right foot surgery 12/31/2019. Date of Evaluation: 02/25/20 Physical Therapist: Urvashi Platt DPT - Visit Plan Frequency: 3x /Week Duration: 2 Weeks Plan: Ultrasound- manual therapy-stretching of the achilles - Subjective Right foot surgery plantar fascitomoy, heel spur resection and tarsal tunnel decompression by Dr. Hylton 12/31/2019. 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 She reports that she starts out okay then about noon it starts to hurt- and she is limping pretty bad at end of the day. Pain is located in the bottom of the heel Worst: 10/10 Agg: being up on it. Feels like someone is pushing a knife though the bottom of the heel. Best: 0/10 Eases: sit down- takes about 30 min- 60 min for the pain then she can take Ibuprofen and that helps. Does still have the boot she can wear as needed. Has orthotics for her work boots from Dr. Hylton. No x-rays since surgery. 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 Sleep: not disturbed. PMHx: acid reflux Meds: see list in chart - Objective Posture: FH, RS- can correct and maintain with verbal cues. Gait: antalgic-decreased stance on the right LE- poor heel/toe pattern. HR/TR: able with UE A. SLS: 10 sec then LOB. Sensation: diminished along incision and heel. ROM: DF: 10 degrees, PF: 60 degrees, inver: 30 degrees, Ever: 20. Strength: Hip: 4+/5, Knee: 5/5, Ankle: 4+/5 throughout. Flex: Gastroc: moderate Soleus: moderate. Observation: incision healing well- moderate edema along achilles tendon - Goals Goal 1:: Patient will be I with HEP and progression Goal Time Frame: 4-6 Weeks Goal 2:: Patient will ambulate >300 feet with a normalized gait pattern Goal Time Frame: 4-6 Weeks Goal 3:: Patient will report 0/10 pain for 1 week Goal Time Frame: 4-6 Weeks - Rehabilitation Potential Physical Therapy Diagnosis: Patient presents with mild hypomobility- she has increased inflammation and decreased flexibility leading to increased pain with ADL's. Rehabilitation Potential: Good - Anticipated Interventions Patient/Client Instruction: Educate patient on: Benefits of Fitness Program Therapeutic Exercise to Include: Strength training, Endurance training, Balance training, Body mechanics, Postural training, Flexibilty training, Dynamic Lumbar Stabilization For the Purpose of:: To improve muscle performance and motor function Cryotherapy (ice pack, ice massage): Yes Thermo therapy (hot pack): Yes Ultrasound (thermal/non thermal): Yes For the Purpose of:: To decrease pain Thank you for the opportunity to evaluate your patient. For Medicare and Medicare HMO plans, please review the plan of care and approve it. It will need to be FAXED BACK to us at [phone] for Medicare purposes. For Medicare only, by signing this I certify the plan of care. Please let me know if there are questions or concerns regarding this plan of care. Physician Signature: Date:
--- NOTE | 2020-03-29 07:49 | HP.PTDCSUM ---
It has been my pleasure to treat VITO BEATTY referred by Dr. Elfego Hylton DPM, with the diagnosis of S/P right foot surgery 12/31/2019 for a total of 13 visit(s). Discharge Date: Please see the following information for a summary of their discharge status. Subjective: She reports feeling great R heel Pain Intensity (Out of 10): 0 % Improvement: 95 Objective/Function: Patient reports that she is happy with progress and ready to be d/c- will call if any questions or concerns Goal 1:: Patient will be I with HEP and progression Goal 2:: Patient will ambulate >300 feet with a normalized gait pattern Goal 3:: Patient will report 0/10 pain for 1 week Plan: Continue 3x a week for 3 weeks. Ultrasound- manual therapy-stretching of the achilles If there are questions or concerns regarding this patient's physical therapy, please feel free to call me at [phone]. Thank you for the referral of this patient. Sincerely, Urvashi Platt DPT
== END 2020-03-29 10:55 | disposition home or self-care (01) ==
LOC: PT 07:30
PROVIDERS: PCP Family Medicine; Referring Provider Podiatrist; Visit Provider Podiatrist
DX: Z98.890 Other specified postprocedural states (principal)
CPT/HCPCS: 97035; 97140; 97161; 97164

== ENCOUNTER 2021-08-19 11:29 | Emergency (ER) | payer BC, SELFPAY ==
[2021-08-19 11:30] VITALS: BP 119/79; PULSE 103; RESP 28; TEMP 35.7; O2SAT 94; BMI 32.4
[2021-08-19 12:49] VITALS: O2SAT 95
--- NOTE | 2021-08-19 13:08 | RAD_ITS ---
STUDY: X-RAY CHEST REASON FOR EXAM: Female, 56 years old. SOB TECHNIQUE: Single AP portable view of the chest. COMPARISON: None. FINDINGS: Status post right axillary lymph node dissection. Patchy alveolar opacities in both lungs consistent with bilateral pneumonia. There is no demonstrated pleural abnormality. Normal size heart. Normal mediastinum and lizbeth. Normal visualized pulmonary arteries. Normal visualized aortic arch and descending thoracic aorta. Normal visualized thoracic spine. Normal visualized ribs, clavicles, and shoulders. There is no demonstrated abnormality of the visualized soft tissue structures of the upper abdomen. RAD/Chest 1 View (Portable) IMPRESSION: Bilateral patchy pneumonia. Electronically Signed: Dangelo Villavicencio MD at 13:56 EST Tel , Service support ,
[2021-08-19 13:21] LABS: Absolute Lymphocyte Count 0.55 X10^3/uL (0.83-4.51); Absolute Neutrophil Count 5.5 X10^3/uL (2.0-7.7); Hematocrit 41.5 % (37-47); Hemoglobin 13.7 g/dL (12.0-15.0); Lymphocyte # 0.55 X10^3/ul (0.83-4.51); Lymphocyte % 8.6 % (19-41); Mean Corpuscular Hgb 28.1 pg (27.0-32.0); Mean Platelet Vol. 9.3 fl (6.2-12.0); Monocyte# 0.38 X10^3/uL; Monocyte% 5.9 % (0-10); NRBC Flagged by Analyzer 0 % (0-5); Neutrophil # 5.45 X10^3/uL (2.7-7.7); Neutrophil % 84.9 % (47-70); POSITIVE DIFFERENTIAL YES; Platelet Count 296 K/mm3 (150-450); RBC Distribution Width CV 14.7 % (11.6-14.6); RBC Distribution Width SD 46.3 fl (35.1-43.9); Red Blood Count 4.88 M/mm3 (4.2-5.4); White Blood Count 6.4 K/mm3 (4.4-11.0)
[2021-08-19 13:25] LABS: Differential Indicated SCAN CRITERIA MET
[2021-08-19 13:29] VITALS: BP 118/81; PULSE 98; RESP 19; O2SAT 94
[2021-08-19 13:31] LABS: Anion Gap 7 (5-15); BUN 13 mg/dL (7-18); BUN/Creat Ratio 20.2 RATIO (10-20); Calcium,Total 9.2 mg/dL (8.5-10.1); Chloride 109 mmol/L (98-107); Creatinine, Serum 0.64 mg/dL (0.55-1.02); EST Glomerular Filtration Rate 102 mL/min (>60); Est Glom Filt Rate - Afr Amer 124 mL/min (>60); Estimated Creatinine Clearance 90.42 ml/min; Glucose 177 mg/dL (74-106); Potassium 3.7 mmol/L (3.5-5.1); Sodium Level 142 mmol/L (136-145)
--- NOTE | 2021-08-19 13:50 | EKG12_ITS ---
Test Reason : SOB Blood Pressure : / mmHG Vent. Rate : 094 BPM Atrial Rate : 094 BPM P-R Int : 148 ms QRS Dur : 086 ms QT Int : 340 ms P-R-T Axes : 027 008 021 degrees QTc Int : 425 ms Normal sinus rhythm Normal ECG Confirmed by ALETHEA GARZA, NANDO ([id number]), film and video editor CRESCENCIO SIMMS ([id number]) on 08/22/2021 10:36:32 AM Referred By: JUNIOR Confirmed By:NANDO CLAIRE MD
[2021-08-19 13:56] LABS: Platelet Estimate ADEQUATE (ADEQ); Red Cell Morphology NORM C+C NORMAL (NORM C&C)
[2021-08-19 14:17] LABS: D-Dimer Quantitative (DVT/PE) 0.64 FEU/ug/m (0.27-0.49)
[2021-08-19 14:27] LABS: Troponin-I HS < 3 pg/mL (3.0-54.0)
--- NOTE | 2021-08-19 14:32 | CT_ITS ---
STUDY: CTA CHEST REASON FOR EXAM: Female, 56 years old. dyspnea RADIATION DOSAGE (If Supplied By Facility): CTDIvol = ( 12.4 ) mGy, DLP = ( 402.44 ) mGycm TECHNIQUE: The examination was performed with the intravenous administration of IV 100mL Isovue-370. Post-processing of the angiographic images was performed, with multiplanar reformation and 3D reconstruction. Individualized dose optimization techniques were used for this CT. COMPARISON: Chest x-ray earlier today FINDINGS: Normal enhancement of the main pulmonary artery and right and left pulmonary arteries. Normal enhancement of the bilateral peripheral pulmonary arteries. There is no demonstrated pulmonary embolism. Normal thoracic aorta and visualized great vessels. There is no demonstrated aortic dissection. Normal heart and pericardium. Normal mediastinum. Normal hilar regions. Normal visualized trachea and bronchi. The lungs are well expanded. Bilateral patchy groundglass opacities consistent with moderate subsegmental atelectasis or pneumonitis. Normal pleura. Normal chest wall structures. Normal osseous structures. Normal visualized upper abdomen. CT/CTA Chest W/WO Contrast IMPRESSION: 1. No CT evidence of pulmonary embolism. 2. Moderate bilateral subsegmental atelectasis or pneumonitis. Commonly reported imaging features of Covid 19 pneumonia are present. Other processes such as influenza pneumonia and organizing pneumonia as can be seen in drug toxicity and connective tissue disease can cause a similar imaging pattern. Electronically Signed: Dangelo Villavicencio MD at 15:45 EST Tel , Service support ,
--- NOTE | 2021-08-19 15:05 | ED.VIS.DYS ---
HPI History of Present Illness Chief Complaint: Shortness of Breath Narrative Narrative: Patient presenting with shortness of breath. She is day 8 of COVID-19. She states she tried to get referred for the monoclonal antibodies on her primary care physician reportedly called everywhere and could not get her in. Patient is no longer having fevers. She is not having chills. Not having chest pain. She does feel dyspneic when she is ambulating. [facility] Medical History GERD (gastroesophageal reflux disease) Obesity Plantar fasciitis Thoracic outlet syndrome Home Medications omeprazole 20 mg capsule,delayed release 20 mg PO DAILY 07/27/19 [History Last Taken Unknown] aspirin 81 mg PO DAILY 12/29/19 [History Last Taken Unknown] ibuprofen 600 mg PO Q6H PRN PRN #40 tab 12/31/19 [Rx Last Taken Unknown] Allergy/AdvReac Type Severity Reaction Status Date / Time No Known Allergies Allergy Unverified 08/19/21 11:33 Family History Mother Hypertension Father Hypertension Heart disease CHF Sister Asthma Hypertension Daughter Cancer thyroid cancer Heart disease has had ablations for atrial fib Other Colon cancer Surgical History History of Achilles tendon repair History of hysterectomy History of tubal ligation S/P excision of lipoma Social History Smoking Status: Never smoker ROS ROS ED Constitutional Constitutional ED: Denies chills or fever(s) Eyes Eyes: Denies blurry vision or diplopia ENT ENT ED: Denies rhinorrhea or sore throat Cardiovascular Cardiovascular: Denies chest pain or palpitations Respiratory/Chest Respiratory/Chest: Reports cough and dyspnea Gastrointestinal Gastrointestinal: Denies abdominal pain, nausea or vomiting Genitourinary Genitourinary ED: Denies dysuria or hematuria Musculoskeletal Musculoskeletal: Denies arthralgias or myalgias Integumentary Denies Abrasions or rash Neurologic Neurologic: Denies headache(s) Psychiatric Psychiatric: Denies anxiety or depression EXAM Physical Exam Const Vital Signs: 08/19/21 11:30 08/19/21 12:49 08/19/21 13:29 Temperature 96.2 F L Temperature Source Temporal Pulse Rate 103 H 98 Respiratory Rate 28 H 19 H Respiratory Effort Short of Breath Respiratory Depth Deep Respiratory Pattern Hyperpnea Blood Pressure 119/79 118/81 H Blood Pressure Mean 92 93 Pulse Ox 94 94 Oxygen Delivery Method Room Air Room Air Room Air 08/19/21 15:31 08/19/21 16:50 Temperature Temperature Source Pulse Rate 88 97 Respiratory Rate 24 H 23 H Respiratory Effort Respiratory Depth Respiratory Pattern Blood Pressure 130/75 H 123/76 H Blood Pressure Mean 93 Pulse Ox 95 93 Oxygen Delivery Method Room Air Positive well nourished General Appearance ED: NAD; Negative for pallor HEENT Reports moist mucous membranes atraumatic Eyes PERRL and EOMs intact bilaterally Neck no lymphadenopathy and supple Resp normal respiratory effort and clear to auscultation bilaterally Cardio regular rate and regular rhythm Neuro oriented x3 and CN's II-XII intact bilaterally Sensorium / Orientation: alert Psych mental status grossly normal Thought Process: normal thought process Skin General Skin Exam: Negative for jaundice or pallor Rashes: no rashes MDM MDM MDM Narrative Medical decision making narrative: Patient presenting with dyspnea. She is on day 8 of COVID-19. Patient had EKG interpreted by myself shows a sinus rhythm off and on day 94 bpm without sign of ischemic change. Chest x-ray on my interpretation is bilateral pulmonary infiltrates and the radiologist does agree. This is consistent with patient's known diagnosis of COVID-19. High-sensitivity troponin is less than 3. Creatinine is normal. D-dimer was elevated 0.64. CTA of the chest identifies no pulmonary emboli. There is COVID-19 nidus present. Patient is not hypoxic and wants a referral to the monoclonal antibodies. I feel this is reasonable. I did write the referral myself. Impression: 1. COVID-19 pneumonitis Lab Data Attestation: I reviewed the patient's lab results. Labs: Laboratory Results - last 24 hr 08/19/21 08/19/21 08/19/21 13:10 13:10 13:10 WBC 6.4 RBC 4.88 Hgb 13.7 Hct 41.5 MCV 85.0 MCH 28.1 MCHC 33.0 RDW Std Deviation 46.3 H RDW Coeff of Rl 14.7 H Plt Count 296 MPV 9.3 Immature Gran % (Auto) 0.600 Neut % (Auto) 84.9 H Lymph % (Auto) 8.6 L Sevier % (Auto) 5.9 Eos % (Auto) 0.0 Baso % (Auto) 0.0 Absolute Neuts (auto) 5.5 Absolute Lymphs (auto) 0.55 L Nucleated RBC % 0 Platelet Estimate ADEQUATE RBC Morphology NORM C+C D-Dimer Quant (PE/DVT) 0.64 H* Sodium 142 Potassium 3.7 Chloride 109 H Carbon Dioxide 26.0 Anion Gap 7 BUN 13 Creatinine 0.64 Estim Creat Clear Calc 90.42 Est GFR (MDRD) Af Amer 124 Est GFR (MDRD) Non-Af 102 BUN/Creatinine Ratio 20.2 H Glucose 177 H Calcium 9.2 Troponin I High Sens 08/19/21 13:10 WBC RBC Hgb Hct MCV MCH MCHC RDW Std Deviation RDW Coeff of Rl Plt Count MPV Immature Gran % (Auto) Neut % (Auto) Lymph % (Auto) Sevier % (Auto) Eos % (Auto) Baso % (Auto) Absolute Neuts (auto) Absolute Lymphs (auto) Nucleated RBC % Platelet Estimate RBC Morphology D-Dimer Quant (PE/DVT) Sodium Potassium Chloride Carbon Dioxide Anion Gap BUN Creatinine Estim Creat Clear Calc Est GFR (MDRD) Af Amer Est GFR (MDRD) Non-Af BUN/Creatinine Ratio Glucose Calcium Troponin I High Sens < 3 L Radiography Diagnostic Testing: Clinical Impression(s) from Imaging Studies Chest X-Ray 08/19/21 13:08 IMPRESSION: Bilateral patchy pneumonia. Electronically Signed: Dangelo Villavicencio MD at 13:56 EST Tel , Service support , Chest CTA 08/19/21 14:32 IMPRESSION: 1. No CT evidence of pulmonary embolism. 2. Moderate bilateral subsegmental atelectasis or pneumonitis. Commonly reported imaging features of Covid 19 pneumonia are present. Other processes such as influenza pneumonia and organizing pneumonia as can be seen in drug toxicity and connective tissue disease can cause a similar imaging pattern. Electronically Signed: Dangelo Villavicencio MD at 15:45 EST Tel , Service support , Discharge Plan Triage Chief Complaint: Shortness of Breath ED Provider: Jordan Wesley Dx/Rx/DC Orders Instructions: Coronavirus Disease 2019 (COVID-19): Caring for Yourself or Others, ED - COVID Monoclonal AB Infusion ... Prescriptions: No Action omeprazole 20 mg capsule,delayed release(DR/EC) 20 mg PO DAILY RF: 0 aspirin 81 MG tablet,delayed release (DR/EC) 81 mg PO DAILY RF: 0 ibuprofen 600 MG tablet 600 mg PO Q6H PRN PRN (Reason: Pain Score 1-10/10) Qty: 40 RF: 0 Primary Care Provider: Kely Lynch Referrals: Kely Lynch MD [Primary Care Provider] - Disposition Disposition: Home, Self Care Discharge Date/Time: 08/19/21 16:51
[2021-08-19 15:31] VITALS: BP 130/75; PULSE 88; RESP 24; O2SAT 95
[2021-08-19 16:50] VITALS: BP 123/76; PULSE 97; RESP 23; O2SAT 93
== END 2021-08-19 16:51 | disposition home or self-care (01) ==
PROVIDERS: Emergency Provider Student in an Organized Health Care Education/Training Program; PCP Family Medicine; Visit Provider Student in an Organized Health Care Education/Training Program
DX: U07.1 COVID-19 (principal); J12.82 Pneumonia due to coronavirus disease 2019; K21.9 Gastro-esophageal reflux disease without esophagitis; E66.9 Obesity, unspecified; Z79.82 Long term (current) use of aspirin; Z79.899 Other long term (current) drug therapy
CPT/HCPCS: 71045; 71275; 80048; 84484; 85025; 85379; 93005; 99283; Q9967; A4216

== ENCOUNTER 2021-08-20 12:33 | Outpatient (CLI) | payer BC, SELFPAY ==
[2021-08-20 12:31] VITALS: BP 121/76; PULSE 103; RESP 18; TEMP 36.8; O2SAT 92; BMI 32.4
[2021-08-20] MEDS: 0.9% Saline Lock 10 ML Syringe IV (13:11)
[2021-08-20 13:30] VITALS: BP 119/73; PULSE 96; RESP 16; TEMP 37.2; O2SAT 95
[2021-08-20 14:21] VITALS: BP 115/74; PULSE 94; RESP 16; TEMP 36.6; O2SAT 94
== END 2021-08-20 23:59 | disposition home or self-care (01) ==
LOC: MS3OUT 12:33 → MS3 12:34
PROVIDERS: PCP Family Medicine; Visit Provider Student in an Organized Health Care Education/Training Program
DX: Z23 Encounter for immunization (principal); U07.1 COVID-19
CPT/HCPCS: J7050; M0243; A4216; Q0244

== ENCOUNTER 2021-10-26 06:58 | Outpatient (CLI) | payer BC, SELFPAY ==
--- NOTE | 2021-10-26 13:31 | PFT_ITS ---
INTRODUCTION: The patient is a 56-year-old female that presents for pulmonary function studies due to a history of Covid. Respiratory therapy reported good patient effort. Bronchodilators were used during testing. INTERPRETATION: Forced expiration spirometry demonstrates no evidence of a large airways obstructive ventilatory defect. There was no significant response to a erosolized bronchodilators. Spirograms are of good quality and plateau normally. Body plethysmography was performed and revealed a decreased TLC to 3.3 L, 64% of predicted, indicative of a moderate restrictive ventilatory impairment. Diffusing capacity by single breath CO is reduced at 55% of predicted. IMPRESSION: Moderate restrictive ventilatory impairment with symmetric reduction in diffus ing capacity.
== END 2021-10-26 23:59 | disposition home or self-care (01) ==
PROVIDERS: PCP Nurse Practitioner Family; Referring Provider Internal Medicine Critical Care Medicine; Visit Provider Internal Medicine Critical Care Medicine
DX: U07.1 COVID-19 (principal)
CPT/HCPCS: 94060; 94726; 94729

== ENCOUNTER 2021-11-01 08:06 | Outpatient (CLI) | payer BC, SELFPAY ==
[2021-11-01 08:15] VITALS: PULSE 109; PULSE 115; PULSE 117; PULSE 118; PULSE 119; PULSE 124; PULSE 95; PULSE 96; O2SAT 94; O2SAT 95; O2SAT 97; O2SAT 98
--- NOTE | 2021-11-01 13:15 | PCM.PSN.6M ---
PSN 6 Minute Walk Test 6 Minute Walk Test 6 Minute Walk Test: 6 Minute Walk Test PSN:6-Minute Walk Test Start: 11/01/21 08:32 Freq: Status: Active Protocol: [id number] Document 11/01/21 08:15 [facility] (Rec: 11/01/21 08:36 [facility] [id number]) 6 Minute Walk Test Date Performed 11/01/21 Time Performed 08:15 Height 5 ft 5 in Weight: 85.275 kg Weight in Pounds 188.[address]: Dr Carl Assistive device used: None Pre-test Oxygen Delivery Method Room Air Pulse Ox (%) 97 Pulse Rate (60-100 beats/min) 96 Dyspnea Mitch Scale (0-10) 0 Exertion Mitch Scale (6-20) 6 1st minute Oxygen Delivery Method Room Air Pulse Ox (%) 95 Pulse Rate (60-100 beats/min) 115 H 2nd minute Oxygen Delivery Method Room Air Pulse Ox (%) 95 Pulse Rate (60-100 beats/min) 118 H 3rd minute Oxygen Delivery Method Room Air Pulse Rate (60-100 beats/min) 95 Dyspnea Mitch Scale (0-10) 119 4th minute Oxygen Delivery Method Room Air Pulse Ox (%) 95 Pulse Rate (60-100 beats/min) 117 H 5th minute Oxygen Delivery Method Nasal Cannula Pulse Ox (%) 95 Pulse Rate (60-100 beats/min) 119 H 6th minute Oxygen Delivery Method Room Air Pulse Ox (%) 94 Pulse Rate (60-100 beats/min) 124 H Dyspnea Mitch Scale (0-10) 0 Exertion Mitch Scale (6-20) 9 Post-test Oxygen Delivery Method Room Air Pulse Ox (%) 98 Pulse Rate (60-100 beats/min) 109 H Full Laps Walked 18 Partial Lap, Number of Tiles Walked 20 Total Distance Walked (ft) 1082 Interpretation Interpretation: The patient was able to ambulate 1082 feet over the course of 6 minutes on room air with no assistive devices or breaks. The patient experienced no significant desaturation, but did have significant tachycardia with a peak heart rate of 124 bpm. These findings are consistent with a cardiovascular limitation exercise tolerance. Recommendations Recommendations: No supplemental oxygen is indicated at this time.
== END 2021-11-01 23:59 | disposition home or self-care (01) ==
LOC: PSN 08:06
PROVIDERS: PCP Nurse Practitioner Family; Referring Provider Internal Medicine Critical Care Medicine; Visit Provider Internal Medicine Critical Care Medicine
DX: U07.1 COVID-19 (principal)
CPT/HCPCS: 94618

== ENCOUNTER → 2022-03-15 | Outpatient (CLI) | payer BC, OTHER, SELFPAY ==
--- NOTE | 2022-03-16 07:14 | PFT ---
INTRODUCTION: The patient is a 56-year-old female that presents for pulmonary function studies secondary to a history of COVID-19. Respiratory therapy reported good patient effort. Bronchodilators were used during testing. INTERPRETATION: Forced expiration spirometry demonstrates no evidence of a large airways obstructive ventilatory defect. There was no significant response to aerosolized bronchodilators. Spirograms are of good quality and plateau normally. Body plethysmography was performed and reveals a decreased TLC to 3.92 L, 79% of predicted, indicative of a mild restrictive ventilatory impairment. Diffusing capacity by single breath CO is reduced to 65% of predicted. IMPRESSION: Mild restrictive ventilatory impairment with symmetric reduction in diffusing capacity.
== END | disposition home or self-care (01) ==
PROVIDERS: PCP Nurse Practitioner Family; Visit Provider Internal Medicine Critical Care Medicine
DX: U07.1 COVID-19 (principal)
CPT/HCPCS: 94060; 94726; 94729